=== PATIENT | male | born 1955 | race Caucasian/White ===

== ENCOUNTER 2017-01-09 12:01 | Emergency (ER) | payer OTHER ==
--- NOTE | ~2017-01-09 | CT101 ---
[facility] A Service of [facility] & [facility] / [facility] RADIOLOGY TEXT RESULTS PATIENT: SUDHEER JONES LOCATION: [facility] : 59 UNIT #: [id number] AGE: [address]: Jaun Ruano MD SEX: M ORDER DR: [id number] [facility] [address] [place], [place] [address] [id number] E MR#: [id number] #: [id number] NAME: SUDHEER JONES : 1955 SEX: M STUDY DATE/TIME: 01/09/2017 11:32 UNIT: KYLE ROOM: STUDY DESCRIPTION: CT Maxillofacial Area Wo Cont Attending Physician: Jaun Ruano M.D. Ordering Physician: Jaun Ruano M.D. Primary Care Physician: Deisi Muñoz M.D. MEDICAL IMAGING REPORT This report is preliminary unless electronic signature is present EXAM CT maxillofacial. HISTORY Fell 3 days ago with facial trauma, pain, bruising right side of all around neck, face. TECHNIQUE CT of the facial bones performed in the axial plane followed by sagittal and coronal reconstructed imaging. This CT exam was performed with one or more of the following radiation dose reduction techniques: automatic exposure control, adjustment of mA and/or kV according to patient size, and iterative reconstruction. COMMENT There is a separate head CT is from the report for description of the acute subdural hematoma on the right. The temporomandibular joints are located. There is a depressed fracture mildly left side nasal bone with medial displacement of the more distal fracture fragments. It is minimally comminuted. There is a small air-fluid level in the right maxillary sinus but there is nothing to suggest an orbital floor fracture. There is depression of the zygomaticomaxillary suture on the right consistent with trauma, age indeterminate, and there is minimal displacement of the zygomaticomaxillary suture on the left side, probably remote. The globes are intact. The lenses are located. There is no retrobulbar hematoma appreciated. The patient has dental disease. Patient is partially edentulous and several of the teeth remaining show elsa-root lucencies which are consistent with dental abscesses. Dental caries appreciated. Dental exam would be most helpful. [facility] A Service of [facility] & [facility] / [facility] RADIOLOGY TEXT RESULTS PATIENT: SUDHEER JONES LOCATION: [facility] : 59 UNIT #: [id number] AGE: [address]: Jaun Ruano MD SEX: M ORDER DR: IMPRESSION 1. Mildly depressed minimally comminuted fracture of the left-sided nasal bone. 2. Depression of the right-sided zygomaticomaxillary suture. Please correlate for evidence for recent trauma to the right cheek area. 3. There is a small air-fluid level in the right maxillary sinus but there is no evidence for orbital floor fracture. There is some paranasal sinus disease and the fluid level could be related to paranasal sinus disease rather than trauma. 4. Dental disease. 5. See separate head CT dictation for a description of the subdural hematoma overlying the right frontal lobe. STAT * RESULT Dictated by... Celia Gray M.D. THIS IS AN ELECTRONICALLY VERIFIED REPORT Celia Gray M.D. at 01/09/2017 1:27 PM YARON/shanelle TD: 01/09/2017 12:10 JOB #: [id number] MEDICAL IMAGING REPORT Page 1 of 1 COPY
--- NOTE | ~2017-01-09 | EKG ---
PATIENT: SUDHEER JONES UNIT #: [id number] Ventricular Rate: 101 BPM Atrial Rate: 101 BPM P-R Interval: 154 ms QRS Duration: 66 ms Q-T Interval: 358 ms QTC Calculation(Bezet): 464 ms P [place]: 79 degrees Calculated R [place]: 90 degrees Calculated T [place]: 48 degrees Diagnosis Line: Sinus tachycardia Diagnosis Line: Right atrial enlargement Diagnosis Line: Rightward axis Diagnosis Line: Borderline ECG Diagnosis Line: No previous ECGs available Diagnosis Line: Confirmed by RONDA CRONIN MD ([id number]) on 01/10/2017 Diagnosis Line: 3:30:16 PM INTERPRETING MD: MEHRDAD ZAMAN
--- NOTE | ~2017-01-09 | CT52 ---
[facility] A Service of [facility] & [facility] RADIOLOGY TEXT RESULTS PATIENT: SUDHEER JONES LOCATION: [facility] : 59 UNIT #: [id number] AGE: [address]: Jaun Ruano MD SEX: M ORDER DR: [id number] [facility] [address] [place], [place] [address] [id number] E MR#: [id number] Acc #: [id number] NAME: SUDHEER JONES : 1955 SEX: M STUDY DATE/TIME: 01/09/2017 11:32 UNIT: [facility] ROOM: STUDY DESCRIPTION: CT Cervical Spine Wo Cont Attending Physician: Jaun Ruano M.D. Ordering Physician: Jaun Ruano M.D. Primary Care Physician: Deisi Muñoz M.D. MEDICAL IMAGING REPORT This report is preliminary unless electronic signature is present EXAM CT cervical spine, without. HISTORY Fell 3 days ago. Pain and swelling, right side of face and neck. Right lower extremity pain and weakness. Right-sided neck pain. COMMENT CT of the cervical spine performed in the axial plane without contrast, followed by sagittal and coronal reconstructed images. This CT exam was performed with one or more of the following radiation dose reduction techniques: automatic exposure control, adjustment of mA and/or kV according to patient size, and iterative reconstruction. No comparison of the cervical spine. Sagittal alignment is essentially normal. There is severe degenerative disease with endplate spondylosis and severe loss of intervertebral disc height at C3-C4, C5-C6, C6-C7. There is some associated endplate sclerosis, especially at C3-C4, C5-C6, C6-C7. There is no acute-appearing cervical spine fracture. Severe emphysema seen in the upper lungs where visualized. Multiple level cervical degenerative disease is as follows. Please be aware that the CT scan is limited for soft tissue evaluation. At C2-C3, there is asymmetric right-sided facet degenerative change, but no bony canal or foraminal impingement. At C3-C4, asymmetric right-sided facet degenerative change, mild, with uncovertebral osteophyte formation and moderate bony foraminal narrowing. Probably a right paramedian disc protrusion with some endplate spondylosis STS. [facility] A Service of [facility] & [facility] RADIOLOGY TEXT RESULTS PATIENT: SUDHEER JONES LOCATION: [facility] : 59 UNIT #: [id number] AGE: [address]: Jaun Ruano MD SEX: M ORDER DR: and flattening of the right anterior cord. Likely mild canal stenosis. At C4-C5, mild bilateral facet degenerative change, minor endplate spondylosis and uncovertebral osteophyte formation. No bony canal stenosis. At least a posterior disc bulge likely, and mild bony foraminal narrowing on the left. At C5-C6, endplate spondylosis, uncovertebral osteophyte formation, and some facet degenerative change bilaterally. Uncovertebral osteophyte formation worse on the right with mild left and more moderate right-sided bony foraminal narrowing. Probably mild flattening of the right anterior cord by the disc osteophyte. At C6-C7, moderate concentric desiccated disc osteophyte complex with uncovertebral osteophyte formation bilaterally. There is bony foraminal impingement, fairly severe on the left and more moderate on the right, and at least mild bony canal stenosis. At C7-T1, there is no bony canal or foraminal impingement. IMPRESSION 1. There is no acute fracture or traumatic malalignment in the cervical spine. Multiple level cervical degenerative disease is noted, most significant-appearing radiographically at C6-C7. 2. Severe emphysema, partly seen in the upper chest. STAT * RESULT Dictated by... Celia Gray M.D. THIS IS AN ELECTRONICALLY VERIFIED REPORT Celia Gray M.D. at 01/09/2017 1:28 PM YARON/madelyn TD: 01/09/2017 12:28 JOB #: [id number] MEDICAL IMAGING REPORT Page 1 of 1 COPY
--- NOTE | ~2017-01-09 | CT71 ---
[facility] A Service of [facility] & [facility] RADIOLOGY TEXT RESULTS PATIENT: SUDHEER JONES LOCATION: [facility] : 59 UNIT #: [id number] AGE: [address]: Jaun Ruano MD SEX: M ORDER DR: [id number] [facility] [address] [place], [place] [address] [id number] P MR#: [id number] Acc #: [id number] NAME: SUDHEER JONES : 1955 SEX: M STUDY DATE/TIME: 01/09/2017 11:32 UNIT: [facility] ROOM: STUDY DESCRIPTION: CT Head Wo Contrast Attending Physician: Jaun Ruano M.D. Ordering Physician: Jaun Ruano M.D. MEDICAL IMAGING REPORT This report is preliminary unless electronic signature is present EXAM Head CT without HISTORY Fell a few days ago. Findings of face, right-sided of head and neck pain all the way around for 3 days. Complains of bilateral lower extremity pain and weakness, facial swelling over the lip, history of hypertension. No history of cancer. TECHNIQUE Routine noncontrast head CT is reviewed. See separate facial bone dictation. This CT exam was performed with one or more of the following radiation dose reduction techniques: automatic exposure control, adjustment of mA and/or kV according to patient size, and iterative reconstruction. FINDINGS There is no displaced calvarial fracture. The visualized mastoid air cells are clear. A small air-fluid level is partly seen in the right maxillary sinus. See the upcoming facial bone CT dictation for further evaluation. There is probably some soft tissue swelling right forehead to bridge of nose area, but please correlate with physical exam. There is generalized atrophy greater than expected for age group and disproportionate volume loss in the posterior fossa. Please correlate with the clinical history of assisted alcohol or antiseizure medication usage. There is what is most likely an acute subdural hematoma overlying the right frontal lobe laterally measuring up to about 6 mm in width. There is only mild local mass effect. It overlies the right frontal lobe laterally and I suspect that there is also minimal subdural blood layering on the right side tentorium cerebellum and lateral to the right temporal lobe. There is white matter low-attenuation, nonspecific, likely due to small vessel disease in age group in the deep to periventricular white matter as well as age-indeterminate lacunar-type insults to the bilateral STS. [facility] A Service of [facility] & [facility] RADIOLOGY TEXT RESULTS PATIENT: SUDHEER JONES LOCATION: [facility] : 59 UNIT #: [id number] AGE: [address]: Jaun Ruano MD SEX: M ORDER DR: basal ganglia. If there is clinical concern for acute CVA, follow-up imaging would be indicated, preferably with an MRI if the patient is a candidate. At this time, there is no significant intracranial mass effect. Findings relayed to Dr. Zamorano by myself during this dictation. IMPRESSION 1. Findings are consistent with an acute-appearing subdural hematoma overlying predominantly the right lateral frontal lobe measuring up to 6 mm in width with a smaller component tracking posteriorly along the right side tentorium cerebellum. Given the underlying atrophy, it is not associated with significant mass effect. 2. Pattern of atrophy suggests long-term alcohol or anti-seizure medication. 3. White matter disease in the lacunar insults are typically age-indeterminate but there is no mass effect and I suspect these are the sequelae of small vessel disease. 4. Smaller fluid level partly seen in the right maxillary sinus. Please see the upcoming facial bone CT dictation for further characterization. STAT * RESULT Dictated by... Celia Gray M.D. THIS IS AN ELECTRONICALLY VERIFIED REPORT Celia Gray M.D. at 01/09/2017 1:27 PM YARON/tara TD: 01/09/2017 12:01 JOB #: [id number] MEDICAL IMAGING REPORT Page 1 of 1 COPY
[2017-01-09 11:05] LABS: URINE SOURCE CLEAN CATCH
[2017-01-09 11:11] LABS: BASOPHIL# 0.1 X10e3 (0-0.3); BASOPHIL% 0.6 % (0-2.5); EOSINOPHIL% 0.5 % (0.0-7.0); HEMATOCRIT 52.1 % (38.0-50.0); HEMOGLOBIN 17.5 gm/dL (13.0-16.0); LYMPHOCYTE# 1.7 X10e3 (1.0-3.5); MEAN CELL VOLUME 93.8 FL (83-96); MEAN CORPUSCULAR HEMOGLOBIN 31.5 PG (28-34); MEAN CORPUSCULAR HGB CONC 33.6 g/dL (30-36); MEAN PLATELET VOLUME 8.9 FL (6.5-11.5); MONOCYTE% 11.2 % (3.0-12.0); NEUTROPHIL# 5.8 X10e3 (1.5-7.1); NEUTROPHIL% 67.7 % (40-75); PLATELET COUNT 292 X10e3 (140-420); RED BLOOD COUNT 5.55 X10e (3.90-5.60); RED CELL DISTRIBUTION WIDTH 15.2 % (11.0-15.5); WHITE BLOOD COUNT 8.6 X10e3 (4.0-10.5)
[2017-01-09 11:12] LABS: DIFF IND NO
[2017-01-09 11:14] LABS: URINE APPEARANCE CLOUDY; URINE BLOOD TRACE (NEG); URINE COLOR DK YELLOW; URINE GLUCOSE NEG (NEG); URINE KETONE TRACE (NEG); URINE LEUKOCYTE ESTERASE 2+ (NEG); URINE NITRATE NEG (NEG); URINE PROTEIN TRACE (NEG); URINE SPECIFIC GRAVITY 1.031 (1.003-1.035)
[2017-01-09 11:16] LABS: CULTURE INDICATED? YES; URINE BACTERIA AUWI 1+ (NEGATIVE); URINE SQUAMOUS EPITHELIAL CELL OCC /[HPF]
[2017-01-09 11:39] LABS: AMPHETAMINE NEG (NEG); BARBITURATES NEG (NEG); BENZODIAZEPINES NEG (NEG); COCAINE POS (NEG); MARIJUANA NEG (NEG); OPIATES NEG (NEG); TRICYCLIC ANTIDEPRESSANTS NEG (NEG); U METHADONE NEG (NEG); URINE BILIRUBIN NEG (NEG)
[2017-01-09 11:40] LABS: URINE MUCUS PRESENT; UWBCS1 AUWI 25-50 (0-5)
[2017-01-09 12:41] LABS: ALBUMIN SERUM 4.2 g/dL (3.5-5.0); ALKALINE PHOSPHATASE 75 U/L (32-92); ALT (SGPT) 16 U/L (10-40); AST (SGOT) 24 U/L (10-42); BILIRUBIN, DIRECT 0.2 mg/dL (0.0-0.2); BILIRUBIN,INDIRECT 1.1 mg/dL (0.0-0.9); BILIRUBIN,TOTAL 1.3 mg/dL (0.2-2.0); BLOOD UREA NITROGEN 13 mg/dL (9-23); BUN/CREATININE RATIO 10.83; CALCIUM SERUM 9.6 mg/dL (8.4-10.2); CARBON DIOXIDE 22 mmol/L (22-31); CHLORIDE 103 mmol/L (100-111); CREATININE SERUM 1.2 mg/dL (0.6-1.4); GLOM FILT RATE Estimated 65.8 mL/min (>60); GLUCOSE FASTING 104 mg/dL (70-110); POTASSIUM 3.8 mmol/L (3.5-5.1); PROTEIN TOTAL SERUM 8.5 g/dL (6.0-8.3); SODIUM 137 mmol/L (135-145)
[2017-01-09 12:43] LABS: ALCOHOL BLOOD <5 mg/dL (0)
== END 2017-01-09 13:45 ==
LOC: CED 12:01
PROVIDERS: Emergency Medicine
DX: S02.2XXA Fracture of nasal bones, initial encounter for closed fracture (principal); S02.40EA Zygomatic fracture, right side, initial encounter for closed fracture; I10 Essential (primary) hypertension; J44.9 Chronic obstructive pulmonary disease, unspecified; W19.XXXA Unspecified fall, initial encounter
CPT/HCPCS: 70450; 70486; 72125; 80048; 80076; 80307; 81003; 85025; 87086; 93005; 96360; 99291; G0480; J1953

== ENCOUNTER 2017-02-24 09:25 | Emergency (ER) | payer OTHER | END 2017-02-24 10:10 | disposition left against medical advice (07) | LOC: CED 09:25 | DX: Z53.21 Procedure and treatment not carried out due to patient leaving prior to being seen by health care provider (principal) ==